=== PATIENT | female | born 1980 | race Caucasian/White ===

== ENCOUNTER → 2017-06-22 | Outpatient (CLI) | payer BC | LOC: OD 17:20 | PROVIDERS: ATTEND Obstetrics & Gynecology | DX: Z53.9 Procedure and treatment not carried out, unspecified reason (principal) ==

== ENCOUNTER 2017-11-12 05:17 | Emergency (ER) | payer BC ==
[2017-11-12 05:25] VITALS: BP 140/87
[2017-11-12] MEDS ORDERED: ALBUTEROL SULFATE 0.083% NEB 2.5 MG/3 ML AMPUL NEB ONE (05:41)
[2017-11-12] MEDS ORDERED: BENZONATATE 100 MG CAPSULE PO ONE (05:41)
--- NOTE | 2017-11-12 05:50 | ER Document Report ---
ED Respiratory Problem - General Mode of Arrival: Ambulatory Information source: Patient TRAVEL OUTSIDE OF THE [place] IN LAST 30 DAYS: No - General Chief Complaint: Cough Stated Complaint: TROUBLE BREATHING Time Seen by Provider: 11/12/17 05:33 Notes: Patient is a 37-year-old female who presents to the emergency department today with complaints of a 4 day duration of sore throat, cough, shortness of breath, nasal congestion, and rhinorrhea and vomiting. Patient states she coughed so much that she vomited. Patient's son had a similar illness recently which developed into pneumonia. Patient denies any fevers or history of asthma. (ROEL FULTON) - Related Data Allergies/Adverse Reactions: No Known Allergies Allergy (Verified 11/12/17 05:18) Past Medical History - General Information source: Patient - Social History Smoking Status: Current Every Day Smoker Cigarette use (# per day): Yes Smoking Education Provided: Yes Frequency of alcohol use: None Drug Abuse: None Lives with: Family Family History: Reviewed & Not Pertinent, CAD - Medical History Medical History: Negative Surgical Hx: Negative Review of Systems - Review of Systems Constitutional: denies: Fever EENT: See HPI, Nose congestion, Nose discharge, Throat pain Cardiovascular: No symptoms reported Respiratory: See HPI, Cough, Short of breath Gastrointestinal: See HPI, Vomiting Genitourinary: No symptoms reported Female Genitourinary: No symptoms reported Musculoskeletal: No symptoms reported Skin: No symptoms reported Hematologic/Lymphatic: No symptoms reported Neurological/Psychological: No symptoms reported -: Yes All other systems reviewed and negative Physical Exam - Vital signs Vitals: Temp Pulse Resp BP Pulse Ox 97.9 F 84 18 140/87 H 97 11/12/17 05:23 11/12/17 05:23 11/12/17 05:23 11/12/17 05:23 11/12/17 05:23 - Notes Notes: PHYSICAL EXAM GENERAL: Alert, interacts well. No acute distress. HEAD: Normocephalic, atraumatic. EYES: Pupils equal, round, and reactive to light. Extraocular movements intact. ENT: Oral mucosa moist, tongue midline. Turbinate edema bilaterally, clear rhinorrhea. TMs are intact bilaterally. Postnasal drainage with cobblestoning. NECK: Full range of motion. Supple. Trachea midline. LUNGS: Inspiratory squeak in the left lower lobe, no wheezing, rhonchi, or rales. Wet cough. No respiratory distress. HEART: Regular rate and rhythm. No murmurs, gallops, or rubs. ABDOMEN: Soft, non-tender. Non-distended. Bowel sounds present in all 4 quadrants. EXTREMITIES: Moves all 4 extremities spontaneously. No edema, radial and dorsalis pedis pulses 2/4 bilaterally. No cyanosis. NEUROLOGICAL: Alert and oriented x3. Normal speech. PSYCH: Normal affect, normal mood. SKIN: Warm, dry, normal turgor. No rashes or lesions noted. (ROEL FULTON) Course - Re-evaluation Re-evalutation: 11/12/17 06:15 Improved air movement with breathing treatment, decreased cough, chest x-ray clear per my interpretation. No evidence of pneumonia. No radiology report available at this time. Patient will be discharged home with albuterol inhaler and Tessalon Perles. No indication for antibiotics. (LAURIE YOUNGBLOOD) - Vital Signs Vital signs: Temp Pulse Resp BP Pulse Ox 97.9 F 84 18 140/87 H 97 11/12/17 05:23 11/12/17 05:23 11/12/17 05:23 11/12/17 05:23 11/12/17 05:23 Discharge - Discharge Clinical Impression: Viral upper respiratory tract infection with cough, Tobacco abuse, Tobacco abuse counseling Hypertension Qualifiers: Hypertension type: unspecified Qualified Code(s): I10 - Essential (primary) hypertension Condition: Stable Disposition: HOME, SELF-CARE Additional Instructions: Please use nasal saline rinses such as a NetiPot or NeilMed Sinus Rinses. Please use ibuprofen (Motrin or Advil) 600-800 mg every 8 hours as needed for pain or fever. You may also use acetaminophen (Tylenol) 1000 mg every 4-6 hours as needed for pain or fever. Please be aware that many medications contain acetaminophen, do not exceed a total of 1000 mg of acetaminophen every 6 hours. Use the inhaler 2 puffs every 4 hours as needed for cough. You may also use the Tessalon Perles for cough. Prescriptions: Benzonatate [Tessalon Perles 100 mg Capsule] 100 mg PO Q8HP PRN #40 capsule PRN Reason: Forms: Elevated Blood Pressure, Smoking Cessation Education, Return to Work Referrals: MANAS PRESTON MD [Primary Care Provider] - Follow up in 1 week Scribe Attestation: 11/12/17 06:17 I personally performed the services described in the documentation, reviewed and edited the documentation which was dictated to the scribe in my presence, and it accurately records my words and actions. (LAURIE YOUNGBLOOD) Scribe Documentation - Scribe Written by Kirti:: Kirti Amaya, 11/12/2017 [id number] acting as scribe for :: Jun
[2017-11-12] MEDS ORDERED: ALBUTEROL SULFATE HFA (90 MCG/PUFF) 8 GM MDI (1 MDI/ER DISP) IH ONE (06:17)
--- NOTE | 2017-11-12 06:31 | RADIOLOGY REPORT (SQ) ---
EXAM DESCRIPTION: CHEST PA/LAT CLINICAL HISTORY: 37 years, Female, cough with post-tussive emesis COMPARISON: 06/04/2016 FINDINGS: Normal lung volume, clear parenchyma, normal cardiac silhouette, and intact bony thorax. IMPRESSION: No acute cardiopulmonary findings. 2011 [employer]- All Rights Reserved
== END 2017-11-12 06:38 | disposition home or self-care (01) ==
LOC: ER 05:17
DX: J06.9 Acute upper respiratory infection, unspecified (principal); I10 Essential (primary) hypertension; F17.210 Nicotine dependence, cigarettes, uncomplicated; R05 Cough; R06.02 Shortness of breath; J02.9 Acute pharyngitis, unspecified; R09.81 Nasal congestion; J34.89 Other specified disorders of nose and nasal sinuses
CPT/HCPCS: 99283; 71046; J3490